=== PATIENT | male | born 1945 | race American Indian/Alaskan Native ===

== ENCOUNTER 2017-03-18 22:18 | Inpatient (IN) | payer MEDICARE, OTHER ==
[2017-03-18 23:41] LABS: Basophils % (Auto) 0.4 % (0.0-1.8); Eosinophils % (Auto) 1.8 % (0.0-4.3); Hematocrit 29.5 % (35.5-45.6); Hemoglobin 9.8 gm/dl (11.8-15.2); Mean Corpuscular HGB Conc 33 % (32-34); Mean Corpuscular Hemoglobin 32 pg (28-32); Mean Corpuscular Volume 97 fl (84-94); Platelet Count 151 K/mm3 (140-440); Red Blood Count 3.05 M/mm3 (3.65-5.03); Red Cell Distribution Width 14.1 % (13.2-15.2); White Blood Count 9.9 K/mm3 (4.5-11.0)
[2017-03-18 23:50] LABS: INR 1.02 (0.87-1.13)
[2017-03-18] MEDS ORDERED: LASIX 100 MG in NACL 0.9% 50 ML IV ONE (23:53)
[2017-03-18 23:55] LABS: Albumin 3.8 g/dL (3.9-5); Albumin/Globulin Ratio 1.1 %; BUN/Creatinine Ratio 10.27; Bilirubin,Total 0.2 mg/dL (0.1-1.2); Calcium 7.3 mg/dL (8.4-10.2); Chloride 103.7 mmol/L (98-107); Potassium 5.3 mmol/L (3.6-5.0); Total Protein 7.2 g/dL (6.3-8.2)
--- NOTE | 2017-03-18 23:57 | Emergency Department Report ---
ED Shortness of Breath HPI - General Chief Complaint: Dyspnea/Respdistress Stated Complaint: DIFFICULTY BREATHING Time Seen by Provider: 03/18/17 23:01 Source: patient, family, EMS Mode of arrival: Stretcher Limitations: No Limitations - History of Present Illness Initial Comments: 71-year-old male with past medical history of hypertension, diabetes, end-stage renal disease not on hemodialysis has presented to the ED complaining of shortness of breath. Per at the bedside who provides most a history, patient was in his normal state of health until earlier this afternoon when he started complaining of shortness of breath. EMS was called to evaluate patient. His oxygenation was 75% on room air patient was brought to the hospital on nonrebreather which increase his oxygen to 92%. Patient states now that he is on BiPAP, his breathing has improved significantly. Patient denies: fevers/chills, chest pain, abdominal pain, nausea/vomiting/diarrhea, hemoptysis , history of DVT PE, history of ID. He states he's had a graft inserted for possible hemodialysis given his history of kidney failure, however he is not began hemodialysis and still makes urine. MD Complaint: shortness of breath -: Gradual, Sudden Consistency: constant Improves With: oxygen Worsens With: lying flat, exertion Associated Symptoms: denies other symptoms Treatments Prior to Arrival: NIPPV - Related Data Allergies Allergy/AdvReac Type Severity Reaction Status Date / Time No Known Allergies Allergy Unverified 03/18/17 22:58 ED Review of Systems ROS: Stated complaint: DIFFICULTY BREATHING Other details as noted in HPI Constitutional: denies: chills, fever Eyes: denies: eye pain, eye discharge, vision change ENT: denies: ear pain, throat pain Respiratory: shortness of breath, SOB with exertion, SOB at rest Cardiovascular: denies: chest pain, palpitations Endocrine: no symptoms reported Gastrointestinal: denies: abdominal pain, nausea, diarrhea Genitourinary: denies: urgency, dysuria Musculoskeletal: denies: back pain, joint swelling, arthralgia Skin: denies: rash, lesions Neurological: denies: headache, weakness, paresthesias Psychiatric: denies: anxiety, depression Hematological/Lymphatic: denies: easy bleeding, easy bruising ED Past Medical Hx - Past Medical History Previous Medical History?: Yes Hx Hypertension: Yes Hx CVA: No Hx Heart Attack/AMI: No Hx Congestive Heart Failure: (unsure) Hx Diabetes: Yes (iddm) Hx Deep Vein Thrombosis: No Hx Pulmonary Embolism: No Hx GERD: No Hx Liver Disease: No Hx Renal Disease: Yes Hx of Cancer: No Hx Sickle Cell Disease: No Hx Arthritis: No Hx Headaches / Migraines: No Hx Seizures: No Hx Psychiatric Treatment: No Hx Asthma: No Hx COPD: No Hx Tuberculosis: No Hx Dementia: No - Surgical History Past Surgical History?: Yes Hx Appendectomy: Yes Additional Surgical History: right BKA - Social History Smoking Status: Current Some Day Smoker ED Physical Exam - General Limitations: No Limitations General appearance: alert, in no apparent distress - Head Head exam: Present: atraumatic, normocephalic - Eye Eye exam: Present: normal appearance - ENT ENT exam: Present: mucous membranes moist - Neck Neck exam: Present: normal inspection - Respiratory Respiratory exam: Present: normal lung sounds bilaterally, respiratory distress , rales (bilateral ), accessory muscle use - Cardiovascular Cardiovascular Exam: Present: regular rate, normal rhythm. Absent: systolic murmur, diastolic murmur, rubs, gallop - GI/Abdominal GI/Abdominal exam: Present: soft, normal bowel sounds - Rectal Rectal exam: Present: deferred - Extremities Exam Extremities exam: Present: normal inspection, pedal edema (right lower extremity : AKA. Left lower extremity 2+ pitting edema ) - Back Exam Back exam: Present: normal inspection - Neurological Exam Neurological exam: Present: alert, oriented X3 - Psychiatric Psychiatric exam: Present: normal affect, normal mood - Skin Skin exam: Present: warm, dry, intact, normal color. Absent: rash ED Course Vital Signs 03/18/17 03/18/17 03/18/17 22:30 22:40 23:01 Temperature 97.9 F Pulse Rate 83 85 83 Respiratory 21 24 Rate Blood Pressure 210/92 210/98 210/98 Blood Pressure [Right] O2 Sat by Pulse 99 99 100 Oximetry 03/19/17 03/19/17 00:15 00:20 Temperature Pulse Rate 81 81 Respiratory 23 Rate Blood Pressure 193/74 Blood Pressure 193/74 [Right] O2 Sat by Pulse 100 Oximetry - Reevaluation(s) Reevaluation #1: 03/18/17 23:57 Patient states his breathing has improved significantly on BiPAP. Patient tolerating BiPAP well ED Medical Decision Making - Lab Data Result diagrams: 03/18/17 23:14 03/18/17 23:14 - EKG Data -: EKG Interpreted by Me EKG shows normal: sinus rhythm - EKG Data When compared to previous EKG there are: previous EKG unavailable - Radiology Data Radiology results: image reviewed interpreted by me: CXR consistent with pulmonary edema - Medical Decision Making 71-year-old male with past medical history of hypertension, diabetes, end-stage renal disease not on hemodialysis has presented to the ED complaining of shortness of breath. At this time patient appears to be in respiratory distress secondary to pulmonary edema. He still makes urine and therefore is given Lasix, and an placed on BiPAP. Patient endorses improvement of his symptoms. I will admit to medicine service for aggressive IV diuresis and likely nephrology consult. Patient stable on BiPAP, no indication to intubate this time. He agrees to admission. Dr. Rubi has accepted patient to his service. - Differential Diagnosis PNA, PE, ACS, Lung CA Critical Care Time: Yes Critical care time in (mins) excluding proc time.: 35 Critical care attestation.: If time is entered above; I have spent that time in minutes in the direct care of this critically ill patient, excluding procedure time. Critical Care Time: 35 minutes ED Disposition Clinical Impression: Shortness of breath, Pulmonary edema, Chronic kidney disease Disposition: OP ADMIT IP TO THIS HOSP Is pt being admited?: Yes Does the pt Need Aspirin: No Condition: Stable Instructions: Pulmonary Edema (ED) Referrals: PRIMARY CARE, [Primary Care Provider] - 3-5 Days
[2017-03-18] MEDS ORDERED: APRESOLINE IV ONE (23:58)
[2017-03-19] MEDS: LASIX IV ONE ×2 (00:18→00:56)
[2017-03-19] MEDS ORDERED: DULCOLAX PR PRN (05:39)
[2017-03-19] MEDS ORDERED: TYLENOL PO PRN (05:39)
[2017-03-19] MEDS ORDERED: ZOFRAN IV PRN (05:39)
[2017-03-19] MEDS ORDERED: DILAUDID IV PRN (05:39)
[2017-03-19] MEDS ORDERED: PERCOCET 5/325 PO PRN (05:39)
[2017-03-19] MEDS ORDERED: MILK OF MAGNESIA PO PRN (05:39)
--- NOTE | 2017-03-19 05:48 | History and Physical Report ---
History of Present Illness Date of examination: 03/19/17 Date of admission: 03/19/17 01:36 Chief complaint: Chief chief complaint: Increasing shortness of breath for 2 days. History of present illness: History of present illness: 71-year-old -[place] male with insulin- dependent diabetes peripheral arterial disease hypertension right below-knee amputation comes in for shortness of breath for 2 days. More so for the last 24 hours. Orthopnea present. Patient denies similar episode 3 weeks ago but did not seek any medical attention at that time. Patient has end-stage renal disease and has a recent AV fistula created in the left arm. Not on hemodialysis. Patient follows with the [facility]. Does not have a local PCP or a a flour blender. Patient is unrealistic about going for dialysis 3 times a week to the [facility]. No palpitations no diaphoresis no chest pain. No recent travel. - Past Medical History Previous Medical History?: Yes Hx Hypertension: Yes Hx Heart Attack/AMI: No Hx Congestive Heart Failure: (unsure) Hx Diabetes: Yes (iddm) Hx Renal Disease: Yes Surgical History Past Surgical History?: Yes Hx Appendectomy: Yes Additional Surgical History: right BKA AVF LUE - Social History Smoking Status: Smoker -stopped 30 years ago Family history: Hypertension ROS: Stated complaint: DIFFICULTY BREATHING Other details as noted in HPI Constitutional: denies: chills, fever Eyes: denies: eye pain, eye discharge, vision change ENT: denies: ear pain, throat pain Respiratory: shortness of breath, SOB with exertion, SOB at rest, no chest pain Cardiovascular: denies: chest pain, palpitations Endocrine: no symptoms reported Gastrointestinal: denies: abdominal pain, nausea, diarrhea Genitourinary: denies: urgency, dysuria Musculoskeletal: denies: back pain, joint swelling, arthralgia Skin: denies: rash, lesions Neurological: denies: headache, weakness, paresthesias Psychiatric: denies: anxiety, depression Hematological/Lymphatic: denies: easy bleeding, easy bruising Medications and Allergies Allergies Allergy/AdvReac Type Severity Reaction Status Date / Time No Known Allergies Allergy Unverified 03/18/17 22:58 Home Medications Medication Instructions Recorded Confirmed Last Taken Type AtorvaSTATin 80 mg PO DAILY 03/19/17 03/19/17 Unknown History Carvedilol 25 mg PO BID 03/19/17 03/19/17 Unknown History Cinacalcet 90 mg PO DAILY 03/19/17 03/19/17 Unknown History Insulin Aspart 4 unit SUB-Q AC 03/19/17 03/19/17 Unknown History Active Meds: Active Medications Acetaminophen (Tylenol) 650 mg PO Q4H PRN PRN Reason: Pain MILD(1-3)/Fever >100.5/MARTINEZ Bisacodyl (Dulcolax) 10 mg MN QDAY PRN PRN Reason: Constipation unrelieved by MOM Hydromorphone HCl (Dilaudid) 0.5 mg IV Q3H PRN PRN Reason: Pain , Severe (7-10) Insulin Aspart (Novolog) 0 units SUB-Q ACHS KYLE PRN Reason: Protocol Magnesium Hydroxide (Milk Of Magnesia) 30 ml PO Q4H PRN PRN Reason: Constipation Nitroglycerin (Nitro-Bid 2%) 1 inch TP BIDNTG KYLE PRN Reason: Protocol Ondansetron HCl (Zofran) 4 mg IV Q8H PRN PRN Reason: N/V unrelieved by Reglan Oxycodone/Acetaminophen (Percocet 5/325) 1 tab PO Q6H PRN PRN Reason: Pain, Moderate (4-6) Exam - Physical Exam Narrative exam: In mild distress secondary to shortness of breath - Constitutional Vitals: Temp Pulse Resp BP Pulse Ox 98.2 F 86 18 191/80 100 03/19/17 04:46 03/19/17 04:46 03/19/17 04:46 03/19/17 04:46 03/19/17 04:46 General appearance: Present: no acute distress, well-nourished - EENT Eyes: Present: PERRL ENT: hearing intact, clear oral mucosa - Neck Neck: Present: supple, normal ROM - Respiratory Respiratory effort: normal Respiratory: bilateral: CTA - Cardiovascular Heart rate: 76 Rhythm: regular (76) Heart Sounds: Present: S1 & S2. Absent: rub, click - Extremities Extremities: no ischemia, pulses intact, pulses symmetrical, No edema, abnormal (right below-knee amputation) Peripheral Pulses: within normal limits - Abdominal General gastrointestinal: Present: soft, non-tender, non-distended, normal bowel sounds Male genitourinary: Present: normal - Integumentary Integumentary: Present: clear, warm, dry - Musculoskeletal Musculoskeletal: gait normal, strength equal bilaterally - Psychiatric Psychiatric: appropriate mood/affect, intact judgment & insight - Neurologic Neurologic: CNII-XII intact, moves all extremities Results - Labs CBC & Chem 7: 03/18/17 23:14 03/18/17 23:14 Labs: Laboratory Last Values WBC 9.9 K/mm3 (4.5-11.0) 03/18/17 23:14 RBC 3.05 M/mm3 (3.65-5.03) L 03/18/17 23:14 Hgb 9.8 gm/dl (11.8-15.2) L 03/18/17 23:14 Hct 29.5 % (35.5-45.6) L 03/18/17 23:14 MCV 97 fl (84-94) H 03/18/17 23:14 MCH 32 pg (28-32) 03/18/17 23:14 MCHC 33 % (32-34) 03/18/17 23:14 RDW 14.1 % (13.2-15.2) 03/18/17 23:14 Plt Count 151 K/mm3 (140-440) 03/18/17 23:14 Lymph % (Auto) 11.6 % (13.4-35.0) L 03/18/17 23:14 [place] % (Auto) 8.2 % (0.0-7.3) H 03/18/17 23:14 Eos % (Auto) 1.8 % (0.0-4.3) 03/18/17 23:14 Baso % (Auto) 0.4 % (0.0-1.8) 03/18/17 23:14 Lymph # 1.1 K/mm3 (1.2-5.4) L 03/18/17 23:14 [place] # 0.8 K/mm3 (0.0-0.8) 03/18/17 23:14 Eos # 0.2 K/mm3 (0.0-0.4) 03/18/17 23:14 Baso # 0.0 K/mm3 (0.0-0.1) 03/18/17 23:14 Seg Neutrophils % 78.0 % (40.0-70.0) H 03/18/17 23:14 Seg Neutrophils # 7.8 K/mm3 (1.8-7.7) H 03/18/17 23:14 PT 13.9 Sec. (12.2-14.9) 03/18/17 23:14 INR 1.02 (0.87-1.13) 03/18/17 23:14 APTT 30.0 Sec. (24.2-36.6) 03/18/17 23:14 Sodium 138 mmol/L (137-145) 03/18/17 23:14 Potassium 5.3 mmol/L (3.6-5.0) H 03/18/17 23:14 Chloride 103.7 mmol/L (98-107) 03/18/17 23:14 Carbon Dioxide 15 mmol/L (22-30) L 03/18/17 23:14 Anion Gap 25 mmol/L 03/18/17 23:14 BUN 76 mg/dL (9-20) H 03/18/17 23:14 Creatinine 7.4 mg/dL (0.8-1.5) H 03/18/17 23:14 Estimated GFR 9 ml/min 03/18/17 23:14 BUN/Creatinine Ratio 10.27 % 03/18/17 23:14 Glucose 177 mg/dL (75-100) H 03/18/17 23:14 Calcium 7.3 mg/dL (8.4-10.2) L 03/18/17 23:14 Total Bilirubin 0.20 mg/dL (0.1-1.2) 03/18/17 23:14 AST 13 units/L (5-40) 03/18/17 23:14 ALT 14 units/L (7-56) 03/18/17 23:14 Alkaline Phosphatase 87 units/L (35-129) 03/18/17 23:14 Troponin T 0.017 ng/mL (0.00-0.029) 03/18/17 23:11 NT-Pro-B Natriuret Pep 3689 pg/mL (0-900) H 03/18/17 23:14 Total Protein 7.2 g/dL (6.3-8.2) 03/18/17 23:14 Albumin 3.8 g/dL (3.9-5) L 03/18/17 23:14 Albumin/Globulin Ratio 1.1 % 03/18/17 23:14 Short CBC 03/18/17 Range/Units 23:14 WBC 9.9 (4.5-11.0) K/mm3 Hgb 9.8 L (11.8-15.2) gm/dl Hct 29.5 L (35.5-45.6) % Plt Count 151 (140-440) K/mm3 BMP 03/18/17 23:14 Sodium 138 Potassium 5.3 H Chloride 103.7 Carbon Dioxide 15 L BUN 76 H Creatinine 7.4 H Glucose 177 H Calcium 7.3 L Cardiac Enzymes 03/18/17 Range/Units 23:11 Troponin T 0.017 (0.00-0.029) ng/mL Liver Function 03/18/17 Range/Units 23:14 Total Bilirubin 0.20 (0.1-1.2) mg/dL AST 13 (5-40) units/L ALT 14 (7-56) units/L Alkaline Phosphatase 87 (35-129) units/L Albumin 3.8 L (3.9-5) g/dL - Imaging and Cardiology EKG: report reviewed (normal sinus rhythm 80 per minute) Chest x-ray: report reviewed (pulmonary vascular congestion) Assessment and Plan Advance Directives: Yes (full code) VTE prophylaxis?: Chemical Plan of care discussed with patient/family: Yes - Patient Problems (1) Acute pulmonary edema Current Visit: Yes Status: Acute Plan to address problem: Secondary to volume overload. Needs emergent hemodialysis. We will give IV Lasix 80 mg 1 Nephrology lean consultant. (2) Acute respiratory failure Current Visit: Yes Status: Acute Qualifiers: Respiratory failure complication: hypoxia Qualified Code(s): J96.01 - Acute respiratory failure with hypoxia Plan to address problem: Secondary to pulmonary vascular congestion. We will try duo nebs every 6 around -the-clock (3) Acute exacerbation of CHF (congestive heart failure) Current Visit: Yes Status: Acute Qualifiers: Congestive heart failure type: combined Qualified Code(s): I50.43 - Acute on chronic combined systolic (congestive) and diastolic (congestive) heart failure Plan to address problem: Check echocardiogram. IV Lasix for now. (4) Hypertension Current Visit: Yes Status: Acute Qualifiers: Hypertension type: H Plan to address problem: Continue antihypertensives (5) Insulin dependent diabetes mellitus Current Visit: Yes Status: Chronic Plan to address problem: Check A1c. Resume home insulin and coverage depending on moderate dose sliding scale protocol. (6) Peripheral arterial disease Current Visit: Yes Status: Chronic Plan to address problem: Vascular surgery consult requested to check the aVF. (7) DVT prophylaxis Current Visit: Yes Status: Acute Plan to address problem: Heparin subcutaneous 5000 every 12
[2017-03-19] MEDS ORDERED: LASIX 80 MG in NACL 0.9% 50 ML IV ONE (06:11)
[2017-03-19] MEDS ORDERED: LASIX IV SCH (06:30)
[2017-03-19] MEDS: NITRO-BID 2% TP SCH ×2 (06:51→14:00)
--- NOTE | 2017-03-19 07:34 | XRay Report ---
PORTABLE CHEST: SOB. An AP portable view of the chest demonstrates a normal cardiac contour considering the limits of this technique. The lungs are clear with no evidence of infiltrate, fluid or failure. IMPRESSION: Normal portable chest.
[2017-03-19] MEDS: NOVOLOG SUB-Q SCH ×7 (08:00→21:58)
--- NOTE | 2017-03-19 08:37 | Admit Criteria Form ---
Admission Criteria Documentation: RESPIRATORY FAILURE GRG Clinical Indications for Admission to Inpatient Care (Place 'X' for any and all applicable criteria): Hospital admission is needed for appropriate care of the patient because of acute respiratory failure or insufficiency as indicated by ANY ONE of the following(1)(2)(3)(4)(5)(6)(7)(8): [X ]I. Mechanical ventilation needed (acute invasive or noninvasive) [ ]II. Severe ventilation deficit as indicated by ANY ONE of the following (9) [ ]a) Respiratory acidosis (pH less than 7.32 and partial pressure of carbon dioxide greater than 40 mm Hg (5.3 kPa)) [ ]b) Partial pressure of carbon dioxide greater than 44 mm Hg (5.9 kPa ) (new) [ ]c) Airflow measurements less than 25% of predicted (eg, peak expiratory flow rate less than 100 L/minute) [ ]d) Forced vital capacity less than 15 mL/kg of ideal body weight, or 50% decrease in vital capacity from baseline [ ]III. Noncardiac pulmonary edema not resolving with rapid emergency treatment (8) [ ]IV. Severe respiratory distress as indicated by ANY ONE of the following: [ ]a) Severe tachypnea (respiratory rate greater than 30, greater than 45 for 6-month-old, greater than 60 for ) [ ]b) Severe hypoxemia (partial pressure of oxygen less than 50 mm Hg ( 6.7 kPa) on greater than 50% oxygen or partial pressure of oxygen to FIO2 ratio less than 200) [ ]c) Mental status deterioration from respiratory disease [ ]V. Airway obstruction or inadequate protection [A](10)(11) The original [employer] content created by [employer] has been revised. The portions of the content which have been revised are identified through the use of italic text or in bold, and [employer] has neither reviewed nor approved the modified material. All other unmodified content is copyright [employer]. Please see references footnoted in the original [employer] edition 2016 Admission Criteria Met: Yes
--- NOTE | 2017-03-19 08:39 | Consultation ---
History of Present Illness - Reason for Consult Consult date: 03/19/17 chronic renal failure, hyperkalemia, metabolic acidosis, other (volume overload) - History of Present Illness Patient is a 71-year-old AAM with history significant for type 2 DM, Peripheral arterial disease s/p right BKA, Hyperlipidemia, Hypertension and CKD stage 5 came to the ER with 1 day h/o shortness of breath. Patient had similar episode 3 weeks ago but did not seek any medical attention at that time. History is positive for Orthopnea and some wheezing. Patient denies any cough, hemoptysis , cp, fever or sick contact. Symptoms are better now. Patient is followed by [facility] Coord[facility]. he is scheduled to get angioplasty of the left arm AVF next week. He denies any uremic symptoms. Past History Past Medical History: anemia, diabetes, hypertension, hyperlipidemia, renal failure Medications and Allergies Allergies Allergy/AdvReac Type Severity Reaction Status Date / Time No Known Allergies Allergy Unverified 03/18/17 22:58 Home Medications Medication Instructions Recorded Confirmed Last Taken Type AtorvaSTATin 80 mg PO DAILY 03/19/17 03/19/17 Unknown History Carvedilol 25 mg PO BID 03/19/17 03/19/17 Unknown History Cinacalcet 90 mg PO DAILY 03/19/17 03/19/17 Unknown History Ferrous Sulfate 325 mg PO DAILY 03/19/17 03/19/17 Unknown History Fosinopril Sodium 40 mg PO DAILY 03/19/17 03/19/17 Unknown History Insulin Aspart 4 unit SUB-Q AC 03/19/17 03/19/17 Unknown History Isosorbide Dinitrate 30 mg PO DAILY 03/19/17 03/19/17 Unknown History Lasix TAB 80 mg PO BID 03/19/17 03/19/17 Unknown History NIFEdipine 30 mg PO DAILY 03/19/17 03/19/17 Unknown History Active Meds: Active Medications Acetaminophen (Tylenol) 650 mg PO Q4H PRN PRN Reason: Pain MILD(1-3)/Fever >100.5/MARTINEZ Atorvastatin Calcium (Lipitor) 80 mg PO QHS KYLE Bisacodyl (Dulcolax) 10 mg [place] QDAY PRN PRN Reason: Constipation unrelieved by MOM Carvedilol (Coreg) 25 mg PO BID KYLE Cinacalcet (Sensipar) 90 mg PO DAILY KYLE Ferrous Sulfate (Feosol) 325 mg PO DAILY [facility] Heparin Sodium (Porcine) (Heparin) 5,000 unit SUB-Q Q12HR KYLE Hydromorphone HCl (Dilaudid) 0.5 mg IV Q3H PRN PRN Reason: Pain , Severe (7-10) Insulin Aspart (Novolog) 0 units SUB-Q ACHS KYLE PRN Reason: Protocol Insulin Aspart (Novolog) 4 units SUB-Q AC KYLE Isosorbide Mononitrate (Imdur) 30 mg PO DAILY@0800 KYLE Lisinopril (Zestril) 40 mg PO QDAY [facility] Magnesium Hydroxide (Milk Of Magnesia) 30 ml PO Q4H PRN PRN Reason: Constipation Nifedipine (Procardia Xl) 30 mg PO DAILY [facility] Nitroglycerin (Nitro-Bid 2%) 1 inch TP BIDNTG KYLE PRN Reason: Protocol Last Admin: 03/19/17 06:51 Dose: 1 inch Ondansetron HCl (Zofran) 4 mg IV Q8H PRN PRN Reason: N/V unrelieved by Reglan Oxycodone/Acetaminophen (Percocet 5/325) 1 tab PO Q6H PRN PRN Reason: Pain, Moderate (4-6) Review of Systems Constitutional: no weight loss, no weight gain, no fever, no chills, no anorexia , no fatigue, no weakness, no malaise, no poor appetite Ears, nose, mouth and throat: no sinus pain, no epistaxis Cardiovascular: orthopnea, shortness of breath, dyspnea on exertion, high blood pressure, no chest pain, no palpitations, no edema, no syncope, no lightheadedness, no leg edema Respiratory: shortness of breath, dyspnea on exertion, wheezing, no cough, no hemoptysis, no pain on inspiration Gastrointestinal: no abdominal pain, no nausea, no vomiting, no diarrhea, no hematemesis, no melena Genitourinary Male: no dysuria, no hematuria Rectal: no bleeding Musculoskeletal: no neck stiffness Integumentary: no rash, no wounds Neurological: no paralysis, no weakness, no tingling, no seizures, no syncope Psychiatric: no sleep disturbances, no change in appetite, no disorientation Hematologic/Lymphatic: no easy bleeding Exam - Vital Signs Vital signs: Vital Signs Pulse Resp BP Pulse Ox 85 22 210/92 100 03/18/17 22:25 07/20/17 22:25 03/18/17 22:25 03/18/17 22:25 - General Appearance General appearance: well-developed, well-nourished, appears stated age, other ( no distress) EENT: ATNC, PERRL, mucous membranes moist, hearing intact, vision intact Neck: Present: neck supple Respiratory: Rales Heart: regular, S1S2, no murmurs Gastrointestinal: Present: normoactive bowel sounds. Absent: tenderness Integumentary: no rash Neurologic: no focal deficit, no asterixis, alert and oriented x3, CN 3-12 intact Musculoskeletal: Present: other (left arm AVF with good thrill, right BKA) Psychiatric: mood/affect appropriate, cooperative Results - Lab Results 03/18/17 23:14 03/18/17 23:14 Most recent lab results Calcium 7.3 mg/dL (8.4-10.2) L 03/18/17 23:14 Assessment and Plan - Patient Problems (1) Chronic kidney disease Current Visit: Yes Status: Chronic Qualifiers: Chronic kidney disease stage: C Plan to address problem: Patient with h/o CKD stage 5. No uremic symptoms or signs. Will follow lytes. (2) Hyperkalemia Current Visit: Yes Status: Acute Plan to address problem: Follow repeat K level. Stop Lisinopril. (3) Metabolic acidosis Current Visit: Yes Status: Acute (4) Acute exacerbation of CHF (congestive heart failure) Current Visit: Yes Status: Acute Qualifiers: Congestive heart failure type: combined Qualified Code(s): I50.43 - Acute on chronic combined systolic (congestive) and diastolic (congestive) heart failure (5) Anemia, chronic renal failure Current Visit: Yes Status: Chronic Qualifiers: Chronic kidney disease stage: C
[2017-03-19] MEDS ORDERED: ZESTRIL PO SCH (10:00)
[2017-03-19] MEDS: LASIX PO SCH ×2 (10:55→19:38)
[2017-03-19] MEDS: FEOSOL PO SCH (10:56)
[2017-03-19] MEDS: SENSIPAR PO SCH (10:56)
[2017-03-19] MEDS: HEPARIN SUB-Q SCH ×2 (10:56→21:58)
[2017-03-19] MEDS: PROCARDIA XL PO SCH (10:56)
[2017-03-19] MEDS: IMDUR PO SCH (10:58)
[2017-03-19] MEDS: COREG PO SCH ×2 (10:58→21:46)
[2017-03-19 11:21] LABS: BUN/Creatinine Ratio 10.77; Calcium 7.7 mg/dL (8.4-10.2); Chloride 105.8 mmol/L (98-107); Potassium 4.9 mmol/L (3.6-5.0)
--- NOTE | 2017-03-19 11:52 | Consultation ---
History of Present Illness - Reason for Consult Consult date: 03/19/17 Fistula evaluation Requesting physician: ALEKSEY BORDEN - History of Present Illness 71-year-old male with stage V kidney disease with right below-knee amputation for diabetes in 2007 and left upper extremity brachial basilic stage I fistula creation in January created at the [facility] with consult for vascular evaluation. Patient has stage I of the 2-stage left upper extremity brachial basilic AV fistula creation. He is scheduled for basilic vein as elevation in 1 week, and afterwards will need at least 2 weeks in order to heal some of the site to allow for attempted AV fistula access. Discussed with patient's attending quantitative analyst developer and the patient will need dialysis prior to 3 weeks. The patient will need dialysis much earlier, within the next few days. Discussed permcath with patient. Past History Past Medical History: anemia, diabetes, hypertension, hyperlipidemia, renal failure Medications and Allergies Allergies Allergy/AdvReac Type Severity Reaction Status Date / Time No Known Allergies Allergy Unverified 03/18/17 22:58 Home Medications Medication Instructions Recorded Confirmed Last Taken Type AtorvaSTATin 80 mg PO DAILY 03/19/17 03/19/17 Unknown History Carvedilol 25 mg PO BID 03/19/17 03/19/17 Unknown History Cinacalcet 90 mg PO DAILY 03/19/17 03/19/17 Unknown History Ferrous Sulfate 325 mg PO DAILY 03/19/17 03/19/17 Unknown History Fosinopril Sodium 40 mg PO DAILY 03/19/17 03/19/17 Unknown History Insulin Aspart 4 unit SUB-Q AC 03/19/17 03/19/17 Unknown History Isosorbide Dinitrate 30 mg PO DAILY 03/19/17 03/19/17 Unknown History Lasix TAB 80 mg PO BID 03/19/17 03/19/17 Unknown History NIFEdipine 30 mg PO DAILY 03/19/17 03/19/17 Unknown History Active Meds: Active Medications Acetaminophen (Tylenol) 650 mg PO Q4H PRN PRN Reason: Pain MILD(1-3)/Fever >100.5/MARTINEZ Atorvastatin Calcium (Lipitor) 80 mg PO QHS KYLE Bisacodyl (Dulcolax) 10 mg GA QDAY PRN PRN Reason: Constipation unrelieved by MOM Carvedilol (Coreg) [address] [facility] Last Admin: 07/21/17 10:58 Dose: 25 mg Cinacalcet (Sensipar) [address] [facility] Last Admin: 03/19/17 10:56 Dose: 90 mg Ferrous Sulfate (Feosol) [address] [facility] Last Admin: 03/19/17 10:56 Dose: 325 mg Furosemide (Lasix) 80 mg PO 0600,1800 [facility] Last Admin: 03/19/17 10:55 Dose: 80 mg Heparin Sodium (Porcine) (Heparin) 5,000 unit SUB-Q Q12HR [facility] Last Admin: 03/19/17 10:56 Dose: Not Given Hydromorphone HCl (Dilaudid) 0.5 mg IV Q3H PRN PRN Reason: Pain , Severe (7-10) Insulin Aspart (Novolog) 0 units SUB-Q ACHS [facility] PRN Reason: Protocol Last Admin: 03/19/17 08:00 Dose: Not Given Insulin Aspart (Novolog) 4 units SUB-Q AC [facility] Last Admin: 03/19/17 08:00 Dose: Not Given Isosorbide Mononitrate (Imdur) 30 mg PO DAILY@0800 [facility] Last Admin: 03/19/17 10:58 Dose: 30 mg Magnesium Hydroxide (Milk Of Magnesia) 30 ml PO Q4H PRN PRN Reason: Constipation Nifedipine (Procardia Xl) [address] [facility] Last Admin: 03/19/17 10:56 Dose: 30 mg Nitroglycerin (Nitro-Bid 2%) [address] [facility] PRN Reason: Protocol Last Admin: 03/19/17 06:51 Dose: 1 inch Ondansetron HCl (Zofran) 4 mg IV Q8H PRN PRN Reason: N/V unrelieved by Reglan Oxycodone/Acetaminophen (Percocet 5/325) 1 tab PO Q6H PRN PRN Reason: Pain, Moderate (4-6) Review of Systems All systems: negative (see HPI) Exam - Constitutional Vitals: Temp Pulse Resp BP Pulse Ox 98.3 F 80 20 170/78 100 03/19/17 08:23 03/19/17 10:58 03/19/17 08:23 03/19/17 10:58 03/19/17 08:23 General appearance: Present: no acute distress - EENT Eyes: Present: EOM intact ENT: hearing intact - Respiratory Respiratory effort: normal - Extremities Extremities: normal temperature, normal color, abnormal (left UE thrill, brachiobasilic) Extremity abnormal: other (R BKA) - Abdominal General gastrointestinal: Present: soft, non-tender - Psychiatric Psychiatric: appropriate mood/affect, cooperative Results - Labs CBC & Chem 7: 03/18/17 23:14 03/19/17 10:56 Labs: Abnormal lab results 03/19/17 Range/Units 10:56 Carbon Dioxide 15 L (22-30) mmol/L BUN 83 H (9-20) mg/dL Creatinine 7.7 H (0.8-1.5) mg/dL Glucose 160 H (75-100) mg/dL Calcium 7.7 L (8.4-10.2) mg/dL Assessment and Plan 71-year-old male with stage V kidney disease with left upper extremity brachiobasilic AV fistula stage I created in January. Patient is scheduled for his second stage AV fistula transposition and elevation of his brachiobasilic AV fistula in 1 week. Patient will need 2 weeks from that point in order to allow for hemodialysis cannulation. Patient will require hemodialysis prior to this. Discussed with quantitative analyst developer. Plan for PermCath today.
[2017-03-19] MEDS ORDERED: NACL 0.9% 100 ML IV PRN (12:16)
[2017-03-19] MEDS ORDERED: HEPARIN/NS 5000 UNIT/500ML(CATH LAB) 500 ML IR ONE (14:49)
[2017-03-19] MEDS ORDERED: NACL 0.9% 250ML 250 ML ONE (14:51)
[2017-03-19] MEDS ORDERED: ANCEF/STERILE WATER 2 GM/20 ML 2 GM/20 ML SYRINGE IV ONE (15:00)
[2017-03-19] MEDS: VERSED ONE ×2 (15:13→15:21)
[2017-03-19] MEDS: SUBLIMAZE ONE ×2 (15:13→15:21)
[2017-03-19] MEDS: XYLOCAINE 1%/ EPI 1:100,000 INFILTRATI ONE ×2 (15:18→15:24)
[2017-03-19] MEDS: HEPARIN 10,000 UNITS/10 ML ONE ×2 (15:39→15:40)
--- NOTE | 2017-03-19 15:56 | Operative Report ---
Operative Report Operative Report: EXAM: 1. Ultrasound-guided puncture of the right internal jugular vein 2. Fluoroscopic-guided placement of a right internal jugular tunneled cuffed hemodialysis catheter. DATE: 03/19/17 INDICATION: 71-year-old male with end-stage renal disease requiring hemodialysis. MEDICATIONS: Please see nursing report for full details. DEVICES: 23 cm tip to cuff 15 Fr dual lumen hemodialysis catheter HAND STAPLER: KEREN MCMAHON MD CONTRAST: None PROCEDURE: The risks, benefits, and alternatives were discussed and informed consent was obtained. The patient was transported to the angiography suite in satisfactory/ stable condition and was transported onto the angiography table. The patient's right internal jugular vein was assessed with ultrasound and determined to be patent prior to procedure. The patient was prepped and draped in a sterile fashion. The puncture site was anesthetized. Under sonographic guidance, the right internal jugular vein was punctured with a 21-gauge micropuncture needle and a 0.018 inch wire was advanced into the inferior vena cava. The micropuncture needle was exchanged for a transitional dilator and the wire was retracted into the right atrium to kristen intravascular distance. The wire and inner dilator were removed. 0.035 inch wire was advanced through the transitional dilator into the inferior vena cava. A suitable exit site was identified on the patient's chest inferior and lateral to the venotomy. The site was anesthetized with local anesthetic and the track was anesthetized. Dermatotomy was made. The PermCath was attached to the tunneling device and tunneled between the dermatotomy to the venotomy. Over the 0.035 inch wire, serial dilatation was performed with ultimate placement of a peel-away sheath. The catheter was advanced through the peel- away sheath after the wire was removed and positioned centrally under fluoroscopic guidance. The peel-away sheath was removed. 4-0 Vicryl suture was used to close the venotomy and Dermabond was then applied. 2-0 Ethilon suture was used to secure the catheter at the dermatotomy. The catheter was charged with heparin 1000 units per mL space. Sterile dressing applied. The patient was transferred from the angiography suite back to the floor in stable condition. FINDINGS: 1. Excellent flow was obtained through the dialysis catheter with 20 mL syringes. 2. The catheter tip is in the right atrium. IMPRESSION: 1. Successful ultrasound and fluoroscopically guided placement of a right internal jugular tunneled cuffed hemodialysis catheter.
--- NOTE | 2017-03-19 16:15 | Progress Note ---
Assessment and Plan Assessment and plan: Patient is a 71-year-old man with a history hypertension and CK D stage 5 glucose who presents with shortness of breath and fluid overload. He was treated with BiPAP and IV Lasix is which helped his condition. Currently on oxygen which is new to him. Patient has a partial left AV fistula that is in place and the [facility] Dr. Palacios was going to finish the left AV fistula next week. Patient was admitted to the hospital because the niece hemodialysis. However he was initially refusing hemodialysis catheter placement , he was on under the impression that we could use to left upper arm fistula now. Education was done. The left upper arm fistula is not eating connected or completed. And even so he was still has some time for it to mature prior to using the fistula. Then he finally went for hemodialysis placement -Acute on chronic CK D end-stage: Nephrology to follow, hemodialysis start -Accelerated hypertension: IV antihypertensive -Hyperkalemia resolved -DVT prophylaxis: Subcutaneous heparin History Interval history: Patient seen and examined. Follow up on fluid overload with less shortness of breath. Overnight uneventful. No cp, n/v or severe headaches. Imaging, old records, testing, labs, nursing notes reviewed. Hospitalist Physical - Physical exam Narrative exam: GEN: WDWN, NAD, AWAKE, ALERT, ORIENTATED x 3 HEENT: NCAT, PERRL, EOMI, OP CLEAR NECK: SUPPLE, NO THYROMEGALY, NO JVD, NO LAD CVS: RRR, NORMAL S1S2 LUNGS/CHEST: Bibasilar crackles NORMAL CHEST EXPANSION B, diminished AIR ENTRY B ABD: SOFT, NTND, GBS, NO REBOUND OR GUARDING EXT/SKIN: Bilateral leg SIGNIFICANT EDEMA OR RASH MSK: FROM X 4 EXTREMITIES NEURO: CN 2-12 GROSSLY INTACT, NO FOCAL DEFICITS PSY: CALM - Constitutional Vitals: Temp Pulse Resp BP Pulse Ox 98.3 F 77 18 199/86 95 03/19/17 12:00 03/19/17 12:00 03/19/17 14:50 03/19/17 12:00 03/19/17 14:50 General appearance: Present: no acute distress Results - Labs CBC & Chem 7: 03/18/17 23:14 03/19/17 10:56 Labs: Laboratory Last Values WBC 9.9 K/mm3 (4.5-11.0) 03/18/17 23:14 RBC 3.05 M/mm3 (3.65-5.03) L 03/18/17 23:14 Hgb 9.8 gm/dl (11.8-15.2) L 03/18/17 23:14 Hct 29.5 % (35.5-45.6) L 03/18/17 23:14 MCV 97 fl (84-94) H 03/18/17 23:14 MCH 32 pg (28-32) 03/18/17 23:14 MCHC 33 % (32-34) 03/18/17 23:14 RDW 14.1 % (13.2-15.2) 03/18/17 23:14 Plt Count 151 K/mm3 (140-440) 03/18/17 23:14 Lymph % (Auto) 11.6 % (13.4-35.0) L 03/18/17 23:14 [place] % (Auto) 8.2 % (0.0-7.3) H 03/18/17 23:14 Eos % (Auto) 1.8 % (0.0-4.3) 03/18/17 23:14 Baso % (Auto) 0.4 % (0.0-1.8) 03/18/17 23:14 Lymph # 1.1 K/mm3 (1.2-5.4) L 03/18/17 23:14 [place] # 0.8 K/mm3 (0.0-0.8) 03/18/17 23:14 Eos # 0.2 K/mm3 (0.0-0.4) 03/18/17 23:14 Baso # 0.0 K/mm3 (0.0-0.1) 03/18/17 23:14 Seg Neutrophils % 78.0 % (40.0-70.0) H 03/18/17 23:14 Seg Neutrophils # 7.8 K/mm3 (1.8-7.7) H 03/18/17 23:14 PT 13.9 Sec. (12.2-14.9) 03/18/17 23:14 INR 1.02 (0.87-1.13) 03/18/17 23:14 APTT 30.0 Sec. (24.2-36.6) 03/18/17 23:14 Sodium 140 mmol/L (137-145) 03/19/17 10:56 Potassium 4.9 mmol/L (3.6-5.0) 03/19/17 10:56 Chloride 105.8 mmol/L (98-107) 03/19/17 10:56 Carbon Dioxide 15 mmol/L (22-30) L 03/19/17 10:56 Anion Gap 24 mmol/L 03/19/17 10:56 BUN 83 mg/dL (9-20) H 03/19/17 10:56 Creatinine 7.7 mg/dL (0.8-1.5) H 03/19/17 10:56 Estimated GFR 9 ml/min 03/19/17 10:56 BUN/Creatinine Ratio 10.77 % 03/19/17 10:56 Glucose 160 mg/dL (75-100) H 03/19/17 10:56 Hemoglobin A1c 6.1 % (4-6) H 03/18/17 23:14 Calcium 7.7 mg/dL (8.4-10.2) L 03/19/17 10:56 Total Bilirubin 0.20 mg/dL (0.1-1.2) 03/18/17 23:14 AST 13 units/L (5-40) 03/18/17 23:14 ALT 14 units/L (7-56) 03/18/17 23:14 Alkaline Phosphatase 87 units/L (35-129) 03/18/17 23:14 Troponin T 0.017 ng/mL (0.00-0.029) 03/18/17 23:11 NT-Pro-B Natriuret Pep 3689 pg/mL (0-900) H 03/18/17 23:14 Total Protein 7.2 g/dL (6.3-8.2) 03/18/17 23:14 Albumin 3.8 g/dL (3.9-5) L 03/18/17 23:14 Albumin/Globulin Ratio 1.1 % 03/18/17 23:14 Hepatitis A IgM Ab Non-reactive (NonReactive) 03/19/17 10:47 Hep Bs Antigen Non-reactive (Negative) 03/19/17 10:47 Hep B Core IgM Ab Non-reactive (NonReactive) 03/19/17 10:47 Hepatitis C Antibody Non-reactive (NonReactive) 03/19/17 10:47
[2017-03-20] MEDS: LASIX PO SCH ×2 (06:01→17:14)
[2017-03-20] MEDS: NITRO-BID 2% TP SCH ×2 (06:03→15:44)
[2017-03-20 07:00] LABS: Basophils % (Auto) 0.7 % (0.0-1.8); Eosinophils % (Auto) 1.8 % (0.0-4.3); Hematocrit 28.1 % (35.5-45.6); Hemoglobin 9.4 gm/dl (11.8-15.2); Mean Corpuscular HGB Conc 34 % (32-34); Mean Corpuscular Hemoglobin 32 pg (28-32); Mean Corpuscular Volume 93 fl (84-94); Platelet Count 136 K/mm3 (140-440); Red Cell Distribution Width 13.6 % (13.2-15.2)
[2017-03-20 07:27] LABS: Albumin 3.6 g/dL (3.9-5); Albumin/Globulin Ratio 1.4 %; BUN/Creatinine Ratio 9.85; Bilirubin,Total 0.2 mg/dL (0.1-1.2); Calcium 7.8 mg/dL (8.4-10.2); Potassium 4.4 mmol/L (3.6-5.0); Total Protein 6.2 g/dL (6.3-8.2)
[2017-03-20] MEDS: NOVOLOG SUB-Q SCH ×7 (07:30→22:35)
[2017-03-20] MEDS: FEOSOL PO SCH (10:25)
[2017-03-20] MEDS: IMDUR PO SCH (10:25)
[2017-03-20] MEDS: PROCARDIA XL PO SCH (10:25)
[2017-03-20] MEDS: SENSIPAR PO SCH (10:25)
[2017-03-20] MEDS: COREG PO SCH ×2 (10:26→22:20)
[2017-03-20] MEDS: HEPARIN SUB-Q SCH ×2 (10:27→22:21)
--- NOTE | 2017-03-20 14:03 | Progress Note ---
Assessment and Plan Assessment and plan: Patient is a 71-year-old man with a history hypertension and CK D stage 5 glucose who presents with shortness of breath and fluid overload. He was treated with BiPAP and IV Lasix is which helped his condition. Currently on oxygen which is new to him. Patient has a partial left AV fistula that is in place and the [facility] Dr. Palacios was going to finish the left AV fistula next week. Patient was admitted to the hospital because he needs hemodialysis. However he was initially refusing hemodialysis catheter placement, he was on under the impression that we could use to left upper arm fistula now. Education was done. The left upper arm fistula is not even connected/ completed. And even so he was still has some time for it to mature prior to using the fistula. Then he finally went for hemodialysis placement. He was told by [place] that he needed a Hemodialysis catheter but he refused. -Acute on chronic CK D end-stage: Nephrology to follow, hemodialysis started yesterday, tolerated it well -Accelerated hypertension: IV antihypertensive -Hyperkalemia resolved -DVT prophylaxis: Subcutaneous heparin -Acute hypoxic respiratory failure, poa, due to p.edema from renal overload: treat with o2 and HD still on 2.5 liters of o2, trying to wean off. full code disposition: hemodialysis setup. History Interval history: Patient seen and examined. Follow up on fluid overload with less shortness of breath. Overnight uneventful. No cp, n/v or severe headaches. Imaging, old records, testing, labs, nursing notes reviewed. Hospitalist Physical - Physical exam Narrative exam: GEN: WDWN, NAD, AWAKE, ALERT, ORIENTATED x 3 HEENT: NCAT, PERRL, EOMI, OP CLEAR NECK: SUPPLE, NO THYROMEGALY, NO JVD, NO LAD CVS: RRR, NORMAL S1S2 LUNGS/CHEST: Bibasilar crackles NORMAL CHEST EXPANSION B, diminished AIR ENTRY B ABD: SOFT, NTND, GBS, NO REBOUND OR GUARDING EXT/SKIN: Bilateral leg SIGNIFICANT EDEMA OR RASH MSK: FROM X 4 EXTREMITIES NEURO: CN 2-12 GROSSLY INTACT, NO FOCAL DEFICITS PSY: CALM - Constitutional Vitals: Temp Pulse Resp BP Pulse Ox 98.3 F 70 20 177/73 100 03/20/17 11:30 03/20/17 11:30 03/20/17 11:30 03/20/17 11:30 03/20/17 11:30 General appearance: Present: no acute distress Results - Labs CBC & Chem 7: 03/20/17 06:26 03/20/17 06:26 Labs: Laboratory Last Values WBC 7.0 K/mm3 (4.5-11.0) 03/20/17 06:26 RBC 3.00 M/mm3 (3.65-5.03) L 03/20/17 06:26 Hgb 9.4 gm/dl (11.8-15.2) L 03/20/17 06:26 Hct 28.1 % (35.5-45.6) L 03/20/17 06:26 MCV 93 fl (84-94) D 03/20/17 06:26 MCH 32 pg (28-32) 03/20/17 06:26 MCHC 34 % (32-34) 03/20/17 06:26 RDW 13.6 % (13.2-15.2) 03/20/17 06:26 Plt Count 136 K/mm3 (140-440) L 03/20/17 06:26 Lymph % (Auto) 15.5 % (13.4-35.0) 03/20/17 06:26 [place] % (Auto) 12.0 % (0.0-7.3) H 03/20/17 06:26 Eos % (Auto) 1.8 % (0.0-4.3) 03/20/17 06:26 Baso % (Auto) 0.7 % (0.0-1.8) 03/20/17 06:26 Lymph # 1.1 K/mm3 (1.2-5.4) L 03/20/17 06:26 [place] # 0.8 K/mm3 (0.0-0.8) 03/20/17 06:26 Eos # 0.1 K/mm3 (0.0-0.4) 03/20/17 06:26 Baso # 0.0 K/mm3 (0.0-0.1) 03/20/17 06:26 Seg Neutrophils % 70.0 % (40.0-70.0) 03/20/17 06:26 Seg Neutrophils # 4.9 K/mm3 (1.8-7.7) 03/20/17 06:26 PT 13.9 Sec. (12.2-14.9) 03/18/17 23:14 INR 1.02 (0.87-1.13) 03/18/17 23:14 APTT 30.0 Sec. (24.2-36.6) 03/18/17 23:14 Sodium 140 mmol/L (137-145) 03/20/17 06:26 Potassium 4.4 mmol/L (3.6-5.0) 03/20/17 06:26 Chloride 101.0 mmol/L (98-107) 03/20/17 06:26 Carbon Dioxide 20 mmol/L (22-30) L 03/20/17 06:26 Anion Gap 23 mmol/L 03/20/17 06:26 BUN 66 mg/dL (9-20) H 03/20/17 06:26 Creatinine 6.7 mg/dL (0.8-1.5) H 03/20/17 06:26 Estimated GFR 10 ml/min 03/20/17 06:26 BUN/Creatinine Ratio 9.85 % 03/20/17 06:26 Glucose 143 mg/dL (75-100) H 03/20/17 06:26 POC Glucose 182 (70-105) H 03/19/17 21:06 Hemoglobin A1c 6.1 % (4-6) H 03/18/17 23:14 Calcium 7.8 mg/dL (8.4-10.2) L 03/20/17 06:26 Total Bilirubin 0.20 mg/dL (0.1-1.2) 03/20/17 06:26 AST 10 units/L (5-40) 03/20/17 06:26 ALT 8 units/L (7-56) 03/20/17 06:26 Alkaline Phosphatase 82 units/L (35-129) 03/20/17 06:26 Troponin T 0.017 ng/mL (0.00-0.029) 03/18/17 23:11 NT-Pro-B Natriuret Pep 3689 pg/mL (0-900) H 03/18/17 23:14 Total Protein 6.2 g/dL (6.3-8.2) L 03/20/17 06:26 Albumin 3.6 g/dL (3.9-5) L 03/20/17 06:26 Albumin/Globulin Ratio 1.4 % 03/20/17 06:26 Hepatitis A IgM Ab Non-reactive (NonReactive) 03/19/17 10:47 Hep Bs Antigen Non-reactive (Negative) 03/19/17 10:47 Hep B Core IgM Ab Non-reactive (NonReactive) 03/19/17 10:47 Hepatitis C Antibody Non-reactive (NonReactive) 03/19/17 10:47
--- NOTE | 2017-03-20 14:11 | Progress Note ---
Assessment and Plan - Patient Problems (1) ESRD (end stage renal disease) Current Visit: Yes Status: Chronic Plan to address problem: Patient was started on hemodialysis yesterday and tolerated well. Resume hemodialysis wednesday. (2) Hyperkalemia Current Visit: Yes Status: Acute Plan to address problem: Improved. (3) Metabolic acidosis Current Visit: Yes Status: Acute Plan to address problem: Improved. (4) Acute exacerbation of CHF (congestive heart failure) Current Visit: Yes Status: Acute Qualifiers: Congestive heart failure type: combined Qualified Code(s): I50.43 - Acute on chronic combined systolic (congestive) and diastolic (congestive) heart failure Plan to address problem: Symptoms improved. Volume status is much better. (5) Anemia, chronic renal failure Current Visit: Yes Status: Chronic Qualifiers: Chronic kidney disease stage: C Plan to address problem: Epogen. Subjective Date of service: 03/20/17 Interval history: Patient is feeling better. Objective - Vital Signs Vital signs: Vital Signs - 12hr 03/20/17 03/20/17 03/20/17 05:06 06:03 07:30 Temperature 98.1 F 97.9 F Pulse Rate 72 Pulse Rate [ 72 72 From Monitor] Respiratory 18 20 Rate Blood Pressure 166/68 Blood Pressure 166/68 156/70 [Left Arm] O2 Sat by Pulse 97 98 Oximetry 03/20/17 03/20/17 03/20/17 10:00 10:25 10:26 Temperature Pulse Rate 78 72 72 Pulse Rate [ From Monitor] Respiratory 18 Rate Blood Pressure 154/74 154/74 Blood Pressure [Left Arm] O2 Sat by Pulse Oximetry 03/20/17 11:30 Temperature 98.3 F Pulse Rate Pulse Rate [ 70 From Monitor] Respiratory 20 Rate Blood Pressure Blood Pressure 177/73 [Left Arm] O2 Sat by Pulse 100 Oximetry - General Appearance General appearance: well-developed, well-nourished, appears stated age, obese, other (no distress, right IJ tunnel catheter) EENT: ATNC, PERRL, mucous membranes moist, hearing intact, vision intact Neck: supple Respiratory: Present: Clear to Ascultation Cardiology: regular, S1S2 Gastrointestinal: normoactive bowel sounds, no tenderness Integumentary: no rash Neurologic: no focal deficit, no asterixis, alert and oriented x3, CN 3-12 intact Musculoskeletal: other (right BKA, left arm AVF) Psychiatric: mood/affect appropriate, cooperative - Lab 03/20/17 06:26 03/20/17 06:26 Most recent lab results Calcium 7.8 mg/dL (8.4-10.2) L 03/20/17 06:26
[2017-03-21] MEDS: LASIX PO SCH ×2 (06:28→17:14)
[2017-03-21] MEDS: NITRO-BID 2% TP SCH ×2 (06:29→16:12)
--- NOTE | 2017-03-21 07:44 | Progress Note ---
Assessment and Plan - Patient Problems (1) ESRD (end stage renal disease) Current Visit: Yes Status: Chronic Plan to address problem: Patient was started on hemodialysis yesterday and tolerated well. Plan to do hemodialysis tomorrow. (2) Hyperkalemia Current Visit: Yes Status: Acute Plan to address problem: Improved. (3) Metabolic acidosis Current Visit: Yes Status: Acute Plan to address problem: Improved. (4) Acute exacerbation of CHF (congestive heart failure) Current Visit: Yes Status: Acute Qualifiers: Congestive heart failure type: combined Qualified Code(s): I50.43 - Acute on chronic combined systolic (congestive) and diastolic (congestive) heart failure Plan to address problem: Symptoms improved. Volume status is much better. (5) Anemia, chronic renal failure Current Visit: Yes Status: Chronic Qualifiers: Chronic kidney disease stage: C Plan to address problem: Epogen. Subjective Date of service: 03/21/17 Interval history: Patient is feeling better. Objective - Vital Signs Vital signs: Vital Signs - 12hr 03/20/17 03/20/17 03/20/17 20:00 22:00 22:20 Temperature 98.2 F Pulse Rate 75 75 Pulse Rate [ 75 From Monitor] Respiratory 18 Rate Blood Pressure 139/63 Blood Pressure 139/63 [Left Arm] O2 Sat by Pulse 98 Oximetry 03/20/17 03/21/17 23:25 04:00 Temperature 97.9 F 98.2 F Pulse Rate Pulse Rate [ 72 69 From Monitor] Respiratory 18 18 Rate Blood Pressure Blood Pressure 160/108 125/57 [Left Arm] O2 Sat by Pulse 97 97 Oximetry - General Appearance General appearance: well-developed, well-nourished, appears stated age, other ( no distress, right IJ tunnel catheter.) EENT: ATNC, PERRL, mucous membranes moist, hearing intact, vision intact Neck: supple Respiratory: Present: Clear to Ascultation Cardiology: regular, S1S2, no murmurs Gastrointestinal: normoactive bowel sounds, no tenderness Integumentary: no rash Neurologic: no focal deficit, no asterixis, alert and oriented x3 Musculoskeletal: other (no edema, left arm AVF) Psychiatric: mood/affect appropriate, cooperative - Lab 03/22/17 06:32 03/22/17 06:32 Most recent lab results Calcium 7.8 mg/dL (8.4-10.2) L 07/22/17 06:26
[2017-03-21] MEDS ORDERED: NACL 0.9% 100 ML IV PRN (08:16)
[2017-03-21] MEDS: NOVOLOG SUB-Q SCH ×7 (08:32→22:55)
[2017-03-21 09:05] LABS: Hematocrit 28.6 % (35.5-45.6); Hemoglobin 9.3 gm/dl (11.8-15.2); Mean Corpuscular HGB Conc 33 % (32-34); Mean Corpuscular Hemoglobin 31 pg (28-32); Mean Corpuscular Volume 96 fl (84-94); Platelet Count 141 K/mm3 (140-440); Red Blood Count 2.99 M/mm3 (3.65-5.03); Red Cell Distribution Width 13.8 % (13.2-15.2); White Blood Count 6.6 K/mm3 (4.5-11.0)
[2017-03-21 09:23] LABS: Chloride 99.6 mmol/L (98-107); Potassium 4.3 mmol/L (3.6-5.0)
[2017-03-21] MEDS: COREG PO SCH ×2 (09:35→22:55)
[2017-03-21] MEDS: PROCARDIA XL PO SCH (09:35)
[2017-03-21] MEDS: IMDUR PO SCH (09:35)
[2017-03-21] MEDS: FEOSOL PO SCH (09:35)
[2017-03-21] MEDS: SENSIPAR PO SCH (09:35)
[2017-03-21] MEDS: HEPARIN SUB-Q SCH ×2 (09:37→22:55)
--- NOTE | 2017-03-21 13:29 | Progress Note ---
Assessment and Plan Assessment and plan: Patient is a 71-year-old man with a history hypertension and CK D stage 5 glucose who presents with shortness of breath and fluid overload. He was treated with BiPAP and IV Lasix is which helped his condition. Currently on oxygen which is new to him. Patient has a partial left AV fistula that is in place and the [facility] Dr. Palacios was going to finish the left AV fistula next week. Patient was admitted to the hospital because he needs hemodialysis. However he was initially refusing hemodialysis catheter placement, he was on under the impression that we could use to left upper arm fistula now. Education was done. The left upper arm fistula is not even connected/ completed. And even so he was still has some time for it to mature prior to using the fistula. Then he finally went for hemodialysis placement. He was told by [place] that he needed a Hemodialysis catheter but he refused. -Acute on chronic CK D most likely end-stage: Nephrology to follow, hemodialysis started, tolerated it well -Accelerated hypertension: IV antihypertensive -Hyperkalemia resolved -DVT prophylaxis: Subcutaneous heparin -Acute hypoxic respiratory failure, poa, due to p.edema from renal overload: treat with o2 and HD Oxygen has been weaned off 99% on room air. full code disposition: hemodialysis setup. History Interval history: Patient seen and examined. Follow up on fluid overload with less shortness of breath. Overnight uneventful. No cp, n/v or severe headaches. Imaging, old records, testing, labs, nursing notes reviewed. Currently off oxygen Hospitalist Physical - Physical exam Narrative exam: GEN: WDWN, NAD, AWAKE, ALERT, ORIENTATED x 3 HEENT: NCAT, PERRL, EOMI, OP CLEAR NECK: SUPPLE, NO THYROMEGALY, NO JVD, NO LAD CVS: RRR, NORMAL S1S2 LUNGS/CHEST: Bibasilar crackles NORMAL CHEST EXPANSION B, diminished AIR ENTRY B ABD: SOFT, NTND, GBS, NO REBOUND OR GUARDING EXT/SKIN: Bilateral leg SIGNIFICANT EDEMA OR RASH MSK: FROM X 4 EXTREMITIES NEURO: CN 2-12 GROSSLY INTACT, NO FOCAL DEFICITS PSY: CALM - Constitutional Vitals: Temp Pulse Resp BP Pulse Ox 98.0 F 68 18 144/65 100 03/21/17 12:00 03/21/17 12:00 03/21/17 12:00 03/21/17 12:00 03/21/17 12:00 General appearance: Present: no acute distress Results - Labs CBC & Chem 7: 03/21/17 08:47 03/21/17 08:47 Labs: Laboratory Last Values WBC 6.6 K/mm3 (4.5-11.0) 03/21/17 08:47 RBC 2.99 M/mm3 (3.65-5.03) L 03/21/17 08:47 Hgb 9.3 gm/dl (11.8-15.2) L 03/21/17 08:47 Hct 28.6 % (35.5-45.6) L 03/21/17 08:47 MCV 96 fl (84-94) H D 03/21/17 08:47 MCH 31 pg (28-32) 03/21/17 08:47 MCHC 33 % (32-34) 03/21/17 08:47 RDW 13.8 % (13.2-15.2) 03/21/17 08:47 Plt Count 141 K/mm3 (140-440) 03/21/17 08:47 Lymph % (Auto) 15.5 % (13.4-35.0) 03/20/17 06:26 [place] % (Auto) 12.0 % (0.0-7.3) H 03/20/17 06:26 Eos % (Auto) 1.8 % (0.0-4.3) 03/20/17 06:26 Baso % (Auto) 0.7 % (0.0-1.8) 03/20/17 06:26 Lymph # 1.1 K/mm3 (1.2-5.4) L 03/20/17 06:26 Grainger # 0.8 K/mm3 (0.0-0.8) 03/20/17 06:26 Eos # 0.1 K/mm3 (0.0-0.4) 03/20/17 06:26 Baso # 0.0 K/mm3 (0.0-0.1) 03/20/17 06:26 Seg Neutrophils % 70.0 % (40.0-70.0) 03/20/17 06:26 Seg Neutrophils # 4.9 K/mm3 (1.8-7.7) 03/20/17 06:26 PT 13.9 Sec. (12.2-14.9) 03/18/17 23:14 INR 1.02 (0.87-1.13) 03/18/17 23:14 APTT 30.0 Sec. (24.2-36.6) 03/18/17 23:14 Sodium 138 mmol/L (137-145) 03/21/17 08:47 Potassium 4.3 mmol/L (3.6-5.0) 03/21/17 08:47 Chloride 99.6 mmol/L (98-107) 03/21/17 08:47 Carbon Dioxide 17 mmol/L (22-30) L 03/21/17 08:47 Anion Gap 26 mmol/L 03/21/17 08:47 BUN 76 mg/dL (9-20) H 03/21/17 08:47 Creatinine 7.6 mg/dL (0.8-1.5) H 03/21/17 08:47 Estimated GFR 9 ml/min 03/21/17 08:47 BUN/Creatinine Ratio 10.00 % 03/21/17 08:47 Glucose 149 mg/dL (75-100) H 03/21/17 08:47 POC Glucose 110 (70-105) H 03/20/17 21:18 Hemoglobin A1c 6.1 % (4-6) H 03/18/17 23:14 Calcium 7.0 mg/dL (8.4-10.2) L 03/21/17 08:47 Total Bilirubin 0.20 mg/dL (0.1-1.2) 03/20/17 06:26 AST 10 units/L (5-40) 03/20/17 06:26 ALT 8 units/L (7-56) 03/20/17 06:26 Alkaline Phosphatase 82 units/L (35-129) 03/20/17 06:26 Troponin T 0.017 ng/mL (0.00-0.029) 03/18/17 23:11 NT-Pro-B Natriuret Pep 3689 pg/mL (0-900) H 03/18/17 23:14 Total Protein 6.2 g/dL (6.3-8.2) L 03/20/17 06:26 Albumin 3.6 g/dL (3.9-5) L 03/20/17 06:26 Albumin/Globulin Ratio 1.4 % 03/20/17 06:26 Hepatitis A IgM Ab Non-reactive (NonReactive) 03/19/17 10:47 Hep Bs Antigen Non-reactive (Negative) 03/19/17 10:47 Hep B Core IgM Ab Non-reactive (NonReactive) 03/19/17 10:47 Hepatitis C Antibody Non-reactive (NonReactive) 03/19/17 10:47
[2017-03-22] MEDS: LASIX PO SCH ×2 (06:03→17:46)
[2017-03-22] MEDS: NITRO-BID 2% TP SCH ×2 (06:03→14:51)
[2017-03-22 07:12] LABS: Hematocrit 26.6 % (35.5-45.6); Mean Corpuscular HGB Conc 34 % (32-34); Mean Corpuscular Hemoglobin 32 pg (28-32); Mean Corpuscular Volume 95 fl (84-94); Platelet Count 130 K/mm3 (140-440)
[2017-03-22 07:48] LABS: BUN/Creatinine Ratio 11.94; Calcium 6.9 mg/dL (8.4-10.2); Chloride 102.5 mmol/L (98-107); Potassium 4.3 mmol/L (3.6-5.0)
--- NOTE | 2017-03-22 07:52 | Progress Note ---
Assessment and Plan - Patient Problems (1) ESRD (end stage renal disease) Current Visit: Yes Status: Chronic Plan to address problem: Patient was started on hemodialysis yesterday and tolerated well. Plan to do hemodialysis today. Await outpatient hemodialysis chair setup. (2) Hyperkalemia Current Visit: Yes Status: Acute Plan to address problem: Improved. (3) Metabolic acidosis Current Visit: Yes Status: Acute Plan to address problem: Improved. (4) Acute exacerbation of CHF (congestive heart failure) Current Visit: Yes Status: Acute Qualifiers: Congestive heart failure type: combined Qualified Code(s): I50.43 - Acute on chronic combined systolic (congestive) and diastolic (congestive) heart failure Plan to address problem: Symptoms improved. Volume status is much better. (5) Anemia, chronic renal failure Current Visit: Yes Status: Chronic Qualifiers: Chronic kidney disease stage: C Plan to address problem: Epogen. Subjective Date of service: 03/22/17 Interval history: Patient is feeling better. Objective - Vital Signs Vital signs: Vital Signs - 12hr 03/21/17 03/21/17 03/21/17 20:00 22:00 22:55 Temperature 98.2 F Pulse Rate 70 72 Pulse Rate [ 72 From Monitor] Respiratory 18 Rate Blood Pressure 123/56 Blood Pressure 123/56 [Left Arm] O2 Sat by Pulse 98 Oximetry 03/22/17 03/22/17 03/22/17 00:00 04:00 06:03 Temperature 98.2 F 97.9 F Pulse Rate Pulse Rate [ 74 69 From Monitor] Respiratory 18 18 Rate Blood Pressure 106/54 Blood Pressure 152/68 106/54 [Left Arm] O2 Sat by Pulse 100 97 Oximetry - General Appearance General appearance: well-developed, well-nourished, appears stated age, other ( no distress, right IJ tunnel catheter) EENT: ATNC, PERRL, mucous membranes moist Neck: supple Respiratory: Present: Clear to Ascultation Cardiology: regular, S1S2, no murmurs Gastrointestinal: normoactive bowel sounds, no tenderness, no distended Integumentary: no rash Neurologic: no focal deficit, no asterixis, alert and oriented x3 Musculoskeletal: other (left arm AVF, no edema) Psychiatric: mood/affect appropriate, cooperative - Lab 03/22/17 06:32 03/22/17 06:32 Most recent lab results Calcium 6.9 mg/dL (8.4-10.2) L 03/22/17 06:32
--- NOTE | 2017-03-22 08:30 | Vascular Lab Report ---
MISCELLANEOUS VESSEL IDENTIFICATION: COMMENTS ON THE SCAN: The right internal jugular vein was identified and under real-time ultrasound guidance was cannulated. IMPRESSION: Successful ultrasound guided vein cannulation.
[2017-03-22] MEDS ORDERED: PROCRIT SUB-Q ONE (09:00)
[2017-03-22] MEDS: NOVOLOG SUB-Q SCH ×7 (09:54→22:00)
[2017-03-22] MEDS: FEOSOL PO SCH (09:55)
[2017-03-22] MEDS: SENSIPAR PO SCH (09:56)
[2017-03-22] MEDS: HEPARIN SUB-Q SCH ×2 (09:57→22:08)
--- NOTE | 2017-03-22 12:41 | Progress Note ---
Assessment and Plan Assessment and plan: Patient is a 71-year-old man with a history hypertension and CK D stage 5 glucose who presents with shortness of breath and fluid overload. He was treated with BiPAP and IV Lasix is which helped his condition. Currently on oxygen which is new to him. Patient has a partial left AV fistula that is in place and the [facility] Dr. Palacios was going to finish the left AV fistula next week. Patient was admitted to the hospital because he needs hemodialysis. However he was initially refusing hemodialysis catheter placement, he was on under the impression that we could use to left upper arm fistula now. Education was done. The left upper arm fistula is not even connected/ completed. And even so he was still has some time for it to mature prior to using the fistula. Then he finally went for hemodialysis placement. He was told by [place] that he needed a Hemodialysis catheter but he refused. -Acute on chronic CK D most likely end-stage: Nephrology to follow, hemodialysis started, tolerated it well -Accelerated hypertension: IV antihypertensive -Hyperkalemia resolved -DVT prophylaxis: Subcutaneous heparin -Acute hypoxic respiratory failure, poa, due to p.edema from renal overload: treat with o2 and HD still on 2.5 liters of o2, trying to wean off. ---> resolved respiratory failure , Oxygen has been weaned off 99% on room air. full code disposition: still waiting on hemodialysis setup. History Interval history: Patient seen and examined. Follow up on fluid overload with less shortness of breath. Overnight uneventful. No cp, n/v or severe headaches. Imaging, old records, testing, labs, nursing notes reviewed. Currently off oxygen Hospitalist Physical - Physical exam Narrative exam: GEN: WDWN, NAD, AWAKE, ALERT, ORIENTATED x 3 HEENT: NCAT, PERRL, EOMI, OP CLEAR NECK: SUPPLE, NO THYROMEGALY, NO JVD, NO LAD CVS: RRR, NORMAL S1S2 LUNGS/CHEST: Bibasilar crackles NORMAL CHEST EXPANSION B, diminished AIR ENTRY B ABD: SOFT, NTND, GBS, NO REBOUND OR GUARDING EXT/SKIN: Bilateral leg SIGNIFICANT EDEMA OR RASH MSK: FROM X 4 EXTREMITIES NEURO: CN 2-12 GROSSLY INTACT, NO FOCAL DEFICITS PSY: CALM - Constitutional Vitals: Temp Pulse Resp BP Pulse Ox 98.1 F 68 18 187/62 100 03/22/17 10:00 03/22/17 12:15 03/22/17 10:00 03/22/17 12:15 03/22/17 07:52 General appearance: Present: no acute distress Results - Labs CBC & Chem 7: 03/22/17 06:32 03/22/17 06:32 Labs: Laboratory Last Values WBC 6.0 K/mm3 (4.5-11.0) 03/22/17 06:32 RBC 2.80 M/mm3 (3.65-5.03) L 03/22/17 06:32 Hgb 9.0 gm/dl (11.8-15.2) L 03/22/17 06:32 Hct 26.6 % (35.5-45.6) L 03/22/17 06:32 MCV 95 fl (84-94) H 03/22/17 06:32 MCH 32 pg (28-32) 03/22/17 06:32 MCHC 34 % (32-34) 03/22/17 06:32 RDW 14.0 % (13.2-15.2) 03/22/17 06:32 Plt Count 130 K/mm3 (140-440) L 03/22/17 06:32 Lymph % (Auto) 15.5 % (13.4-35.0) 03/20/17 06:26 [place] % (Auto) 12.0 % (0.0-7.3) H 03/20/17 06:26 Eos % (Auto) 1.8 % (0.0-4.3) 03/20/17 06:26 Baso % (Auto) 0.7 % (0.0-1.8) 03/20/17 06:26 Lymph # 1.1 K/mm3 (1.2-5.4) L 03/20/17 06:26 [place] # 0.8 K/mm3 (0.0-0.8) 03/20/17 06:26 Eos # 0.1 K/mm3 (0.0-0.4) 03/20/17 06:26 Baso # 0.0 K/mm3 (0.0-0.1) 03/20/17 06:26 Seg Neutrophils % 70.0 % (40.0-70.0) 03/20/17 06:26 Seg Neutrophils # 4.9 K/mm3 (1.8-7.7) 03/20/17 06:26 PT 13.9 Sec. (12.2-14.9) 03/18/17 23:14 INR 1.02 (0.87-1.13) 03/18/17 23:14 APTT 30.0 Sec. (24.2-36.6) 03/18/17 23:14 Sodium 141 mmol/L (137-145) 03/22/17 06:32 Potassium 4.3 mmol/L (3.6-5.0) 03/22/17 06:32 Chloride 102.5 mmol/L (98-107) 03/22/17 06:32 Carbon Dioxide 15 mmol/L (22-30) L 03/22/17 06:32 Anion Gap 28 mmol/L 03/22/17 06:32 BUN 86 mg/dL (9-20) H 03/22/17 06:32 Creatinine 7.2 mg/dL (0.8-1.5) H 03/22/17 06:32 Estimated GFR 9 ml/min 03/22/17 06:32 BUN/Creatinine Ratio 11.94 % 03/22/17 06:32 Glucose 109 mg/dL (75-100) H 03/22/17 06:32 POC Glucose 166 (70-105) H 03/21/17 21:02 Hemoglobin A1c 6.1 % (4-6) H 03/18/17 23:14 Calcium 6.9 mg/dL (8.4-10.2) L 03/22/17 06:32 Total Bilirubin 0.20 mg/dL (0.1-1.2) 03/20/17 06:26 AST 10 units/L (5-40) 03/20/17 06:26 ALT 8 units/L (7-56) 03/20/17 06:26 Alkaline Phosphatase 82 units/L (35-129) 03/20/17 06:26 Troponin T 0.017 ng/mL (0.00-0.029) 03/18/17 23:11 NT-Pro-B Natriuret Pep 3689 pg/mL (0-900) H 03/18/17 23:14 Total Protein 6.2 g/dL (6.3-8.2) L 03/20/17 06:26 Albumin 3.6 g/dL (3.9-5) L 03/20/17 06:26 Albumin/Globulin Ratio 1.4 % 03/20/17 06:26 Hepatitis A IgM Ab Non-reactive (NonReactive) 03/19/17 10:47 Hep Bs Antigen Non-reactive (Negative) 03/19/17 10:47 Hep B Core IgM Ab Non-reactive (NonReactive) 03/19/17 10:47 Hepatitis C Antibody Non-reactive (NonReactive) 03/19/17 10:47
[2017-03-22] MEDS ORDERED: NACL 0.9 (PRIMING MACHINE ONLY DIALYSIS) MC ONE (13:12)
[2017-03-22] MEDS: IMDUR PO SCH (14:49)
[2017-03-22] MEDS: COREG PO SCH ×2 (14:50→22:09)
[2017-03-22] MEDS: PROCARDIA XL PO SCH (14:50)
[2017-03-23] MEDS: NITRO-BID 2% TP SCH (06:28)
[2017-03-23] MEDS: LASIX PO SCH (06:28)
[2017-03-23 07:32] LABS: Hematocrit 28.6 % (35.5-45.6); Hemoglobin 9.7 gm/dl (11.8-15.2); Mean Corpuscular HGB Conc 34 % (32-34); Mean Corpuscular Hemoglobin 32 pg (28-32); Mean Corpuscular Volume 95 fl (84-94); Platelet Count 146 K/mm3 (140-440); Red Blood Count 3.01 M/mm3 (3.65-5.03); Red Cell Distribution Width 13.7 % (13.2-15.2); White Blood Count 6.1 K/mm3 (4.5-11.0)
[2017-03-23 07:50] LABS: BUN/Creatinine Ratio 8.21; Calcium 7.1 mg/dL (8.4-10.2); Chloride 98.7 mmol/L (98-107)
--- NOTE | 2017-03-23 08:06 | Progress Note ---
Assessment and Plan - Patient Problems (1) ESRD (end stage renal disease) Status: Chronic Plan to address problem: CKD stage 5 has progressed to ESRD, started on hemodialysis during this admission. Patient was last dialyzed yesterday. Outpatient hemodialysis was arranged at [facility] starting tomorrow. (2) Hyperkalemia Status: Acute Plan to address problem: Improved. (3) Metabolic acidosis Status: Acute Plan to address problem: Improved. (4) Acute exacerbation of CHF (congestive heart failure) Status: Acute Qualifiers: Congestive heart failure type: combined Qualified Code(s): I50.43 - Acute on chronic combined systolic (congestive) and diastolic (congestive) heart failure Plan to address problem: Symptoms improved. Volume status is much better. (5) Anemia, chronic renal failure Status: Chronic Qualifiers: Chronic kidney disease stage: C Plan to address problem: Epogen. Subjective Date of service: 03/23/17 Interval history: Patient is feeling better. Objective - Vital Signs Vital signs: Vital Signs - 12hr 03/22/17 03/22/17 03/22/17 20:46 22:00 22:09 Temperature 98.4 F Pulse Rate 72 71 Pulse Rate [ 0 L Apical] Pulse Rate [ 0 L From Monitor] Pulse Rate [ 0 L Left Dorsalis Pedis] Pulse Rate [ 0 L Left Radial] Pulse Rate [ 71 Right Radial] Respiratory 20 Rate Blood Pressure 157/68 Blood Pressure 0/0 [Left Arm] Blood Pressure 157/68 [Right Radial Artery] O2 Sat by Pulse 99 Oximetry 03/23/17 03/23/17 03/23/17 00:46 05:11 06:28 Temperature 98.7 F 98.7 F Pulse Rate 69 Pulse Rate [ 0 L 0 L Apical] Pulse Rate [ 0 L 0 L From Monitor] Pulse Rate [ 0 L 0 L Left Dorsalis Pedis] Pulse Rate [ 0 L 0 L Left Radial] Pulse Rate [ 73 69 Right Radial] Respiratory 20 18 Rate Blood Pressure 162/69 Blood Pressure 0/0 0/0 [Left Arm] Blood Pressure 145/64 162/69 [Right Radial Artery] O2 Sat by Pulse 97 98 Oximetry - General Appearance General appearance: well-developed, well-nourished, appears stated age, other ( no distress) EENT: ATNC, PERRL Neck: supple Respiratory: Present: Clear to Ascultation Cardiology: regular, S1S2, no murmurs Gastrointestinal: normoactive bowel sounds, no tenderness, no distended Integumentary: no rash Neurologic: no focal deficit, no asterixis, alert and oriented x3 Musculoskeletal: other (no edema, right IJ tunnel catheter, left arm AVF) Psychiatric: mood/affect appropriate, cooperative - Lab 03/23/17 06:59 03/23/17 06:59 Most recent lab results Calcium 7.1 mg/dL (8.4-10.2) L 03/23/17 06:59
[2017-03-23 08:37] VITALS: BP 148/65
[2017-03-23] MEDS: NOVOLOG SUB-Q SCH ×2 (10:51→10:52)
[2017-03-23] MEDS: FEOSOL PO SCH (11:03)
[2017-03-23] MEDS: SENSIPAR PO SCH (11:03)
[2017-03-23] MEDS: COREG PO SCH (11:04)
[2017-03-23] MEDS: PROCARDIA XL PO SCH (11:04)
--- NOTE | 2017-03-23 11:06 | Discharge Summary ---
Providers - Providers Date of Admission: 03/19/17 01:36 Date of discharge: 03/23/17 Attending physician: PATRICIO SWANSON 03/19/17 05:39 Consult to Physician [CONS] Routine Consulting Provider: ALEKSEY BORDEN Reason For Exam: ESRD Place consult to:: Faizan Notified:: Dr Borden Phone number called:: [phone] Was contact made?: Yes If yes, spoke with:: Dr borden Time called:: 08:41 03/19/17 06:10 Consult to Physician [CONS] Routine Consulting Provider: TIFFANIE DAVID Reason For Exam: AVF patency and whether ready to use Place consult to:: Eugene Notified:: Eugene Phone number called:: In house Time called:: 08:34 Primary care physician: BUSINESS SERVICES ADMINISTRATOR Hospitalization Reason for admission: volume overload Condition: Stable Hospital course: Patient is a 71-year-old man with a history hypertension and CK D stage 5 who presented with shortness of breath and fluid overload. He was treated with BiPAP and IV Lasix is which helped his condition. Patient was admitted to the hospital because he needed hemodialysis. However he was initially refusing hemodialysis catheter placement, he was on under the impression that we could use to left upper arm fistula now. Education was done. The left upper arm fistula is not even connected/completed. And even so he was still has some time for it to mature prior to using the fistula. The patient finally went for hemodialysis placement. He was told by [place] that he needed a Hemodialysis catheter but he refused. Patient was seen by nephrology consultation. Patient was noted to have acute hypoxic respiratory failure present on admission secondary to pulmonary edema from volume overload. Patient initially required BiPAP that was later weaned to oxygen then room air. Case management was consulted for arranging outpatient hemodialysis. The patient now has arrangements for outpatient hemodialysis. Therefore, patient will be discharged home. Dedicated discharged on 31 minutes. Disposition: - TO HOME OR SELFCARE Time spent for discharge: 31 - Discharge Diagnoses (1) Acute pulmonary edema Status: Acute (2) Acute respiratory failure Status: Acute Qualifiers: Respiratory failure complication: hypoxia Qualified Code(s): J96.01 - Acute respiratory failure with hypoxia (3) Pulmonary edema Status: Acute Qualifiers: Chronicity: C (4) Anemia, chronic renal failure Status: Chronic Qualifiers: Chronic kidney disease stage: C (5) ESRD (end stage renal disease) Status: Chronic (6) Insulin dependent diabetes mellitus Status: Chronic Core Measure Documentation - Palliative Care Palliative Care/ Comfort Measures: Not Applicable - Core Measures Any of the following diagnoses?: none Exam - Constitutional Vitals: Temp Pulse Resp BP Pulse Ox 98.2 F 68 18 148/65 99 03/23/17 08:00 03/23/17 08:00 03/23/17 08:00 03/23/17 08:00 03/23/17 08:00 General appearance: Present: no acute distress, well-nourished - EENT Eyes: Present: PERRL ENT: hearing intact, clear oral mucosa - Neck Neck: Present: supple, normal ROM - Respiratory Respiratory effort: normal Respiratory: bilateral: CTA - Cardiovascular Heart Sounds: Present: S1 & S2. Absent: rub, click - Extremities Extremities: pulses symmetrical, No edema Peripheral Pulses: within normal limits - Abdominal General gastrointestinal: Present: soft, non-tender, non-distended, normal bowel sounds Male genitourinary: Present: normal - Integumentary Integumentary: Present: clear, warm, dry - Musculoskeletal Musculoskeletal: gait normal, strength equal bilaterally - Psychiatric Psychiatric: appropriate mood/affect, intact judgment & insight - Neurologic Neurologic: CNII-XII intact, moves all extremities Plan Activity: no restrictions Weight Bearing Status: Full Weight Bearing Diet: renal Follow up with: PRIMARY MD CHE [Primary Care Provider] - 3-5 Days
[2017-03-23] MEDS: HEPARIN SUB-Q SCH (11:07)
== END 2017-03-23 13:24 | disposition home or self-care (01) | DRG 291 ==
LOC: ED 22:18 → 4A 03-19 01:36
PROVIDERS: ADMIT Internal Medicine; ATTEND Hospitalist
PROC: 5A09357 Assistance with Respiratory Ventilation, Less than 24 Consecutive Hours, Continuous Positive Airway Pressure (ICD-10-PCS; 2017-03-18)
PROC: 0JH63XZ Insertion of Tunneled Vascular Access Device into Chest Subcutaneous Tissue and Fascia, Percutaneous Approach (ICD-10-PCS; principal; 2017-03-19)
PROC: 02H633Z Insertion of Infusion Device into Right Atrium, Percutaneous Approach (ICD-10-PCS; 2017-03-19)
PROC: 5A1D60Z (ICD-10-PCS; 2017-03-19)
DX: I13.2 Hypertensive heart and chronic kidney disease with heart failure and with stage 5 chronic kidney disease, or end stage renal disease (principal); I50.43 Acute on chronic combined systolic (congestive) and diastolic (congestive) heart failure; J96.01 Acute respiratory failure with hypoxia; N18.6 End stage renal disease; E87.2 Acidosis; E11.22 Type 2 diabetes mellitus with diabetic chronic kidney disease; F17.210 Nicotine dependence, cigarettes, uncomplicated; E11.51 Type 2 diabetes mellitus with diabetic peripheral angiopathy without gangrene; E87.5 Hyperkalemia; E78.5 Hyperlipidemia, unspecified; Z79.4 Long term (current) use of insulin; Z99.2 Dependence on renal dialysis; Z90.49 Acquired absence of other specified parts of digestive tract; Z89.511 Acquired absence of right leg below knee
CPT/HCPCS: 36415; 36558; 71010; 76937; 77001; 80048; 80053; 80074; 82962; 83036; 83880; 84484; 85025; 85027; 85610; 85730; 93005; 93010; 93306; 96374; 96375; A9270-GY; C1750; J0360; J0690; J1644; J1815; J1940; J2250; J3010; J7030; J7050

== ENCOUNTER 2019-06-19 10:20 | Outpatient (CLI) | payer OTHER ==
--- NOTE | 2019-06-19 11:14 | XRay Report ---
CHEST 2 VIEWS INDICATION: Z11.1 ENCOUNTER FOR SCREENING FOR RESPIRATORY TUBERCULOSIS/R/O TU. COMPARISON: 03/18/2017 report FINDINGS: Support devices: None. Heart: Previous CABG changes. Heart size and mediastinal contour are within normal limits. Lungs/pleura: Small to trace bilateral pleural effusions are suspected, left greater than right. The lungs are clear otherwise. No infiltrate or mass No pneumothorax. Additional findings: None. IMPRESSION: Trace to small bilateral pleural effusions. Lungs clear. Signer Name: Keaton Sterling Jr, MD Signed: 06/19/2019 11:09 AM Workstation Name: [id number]
== END 2019-06-19 10:21 | disposition home or self-care (01) ==
LOC: XRAY 10:20
PROVIDERS: ATTEND Internal Medicine Nephrology
DX: Z11.1 Encounter for screening for respiratory tuberculosis (principal); I13.2 Hypertensive heart and chronic kidney disease with heart failure and with stage 5 chronic kidney disease, or end stage renal disease; I50.9 Heart failure, unspecified; E11.22 Type 2 diabetes mellitus with diabetic chronic kidney disease; E11.51 Type 2 diabetes mellitus with diabetic peripheral angiopathy without gangrene; N18.6 End stage renal disease; E03.9 Hypothyroidism, unspecified; Z87.891 Personal history of nicotine dependence
CPT/HCPCS: 71046